=== PATIENT | male | born 1980 | race Caucasian/White ===

== ENCOUNTER 2024-05-09 03:18 | Outpatient (CLI) | payer MEDICAID, SELFPAY | END 2024-05-09 03:19 | disposition home or self-care (01) | PROVIDERS: Visit Provider Family Medicine | DX: S87.82XA Crushing injury of left lower leg, initial encounter (principal); V49.88XA Car occupant (driver) (passenger) injured in other specified transport accidents, initial encounter; Y92.008 Other place in unspecified non-institutional (private) residence as the place of occurrence of the external cause | CPT/HCPCS: A0425; A0427 ==